=== PATIENT | male | born 1980 | race Hispanic/Latino ===

== ENCOUNTER 2019-03-03 20:57 | Emergency (ER) | payer OTHER ==
[2019-03-03] MEDS ORDERED: KETOROLAC TROMETHAMINE 60 MG/2 ML VIAL ONE (21:33)
[2019-03-03] MEDS ORDERED: CEPHALEXIN 500 MG CAPSULE ONE (21:33)
[2019-03-03] MEDS ORDERED: SULFAMETHOX-TMP DS 800/160 TAB ONE (21:33)
== END 2019-03-03 22:06 | disposition home or self-care (01) ==
LOC: EDH 20:57
DX: L02.612 Cutaneous abscess of left foot (principal); Z72.0 Tobacco use
CPT/HCPCS: 73630; 96372; 99284; J1885